=== PATIENT | female | born 1950 | race Caucasian/White ===

== ENCOUNTER → 2016-05-25 | Day surgery (SDC) | payer MEDICARE ==
[~2016-05-25] MED LIST: LACTATED RINGER'S 1000 ML INJ 1,000 ML ONE; MIDAZOLAM HCL 2 MG/2 ML VIAL ONE; MOXIFLOXACIN 0.5% OPHT SOLN 3 ML BTL ONE; ONDANSETRON HCL 4 MG/2 ML VIAL IV PUSH ONE; PHENYLEPHRINE HCL 10% OPTH SOLN 5 ML BTL ONE; PROPOFOL 200 MG/20 ML AMP IV ONE; TETRACAINE 0.5% OPTH SOLN 15 ML BTL ONE; TRIAMCINOLONE ACETONIDE 40 MG/ML VIAL ONE; prednisoLONE ACETATE 1% OPHT SUSP 5 ML BTL ONE
--- NOTE | 2016-05-28 09:49 | MP ---
cc: LACEY NICHOLS MD DATE OF SURGERY 05/26/2016 POSTOPERATIVE DIAGNOSIS Retained nuclear sclerotic cataract fragment left eye. PROCEDURE Pars plana vitrectomy, pars plana lensectomy, insertion of and intravitreal Kenalog left eye. COMPLICATIONS None BLOOD LOSS Less than [address] Cole INDICATIONS FOR THE PROCEDURE The patient is a delightful patient who had a very dense nuclear sclerotic cataract and a portion was dislocated into the posterior chamber. The patient presented today for surgical removal. PROCEDURE NOTE After informed form consent was obtained, the patient brought to the operating room and general anesthesia was established. The left eye was prepped and draped in a sterile fashion with Betadine in the conjunctival fornix. A three-port pars plans vitrectomy was established with a self-retaining infusion cannula. Core vitreous was evacuated and vitreous traction surrounding the nuclear sclerotic cataract fragment was relieved. Intravitreal PFO was instilled and the nuclear sclerotic cataract fragment was removed with a fragmatome. The PFO was then removed. Scleral depression examination was completed and no retinal holes, tears or detachments were seen. Trocars were removed and sclerotomies closed with a 7-0 Vicryl suture. The conjunctiva was reapproximated with 6-0 plain gut. The eye was patched with Tobramycin. A subconjunctival injection of Ancef and dexamethasone were given. The eye was patched with Tobramycin ointment. The patient was brought to the recovery room in stable condition and continued followup with [facility] for her postop postoperative care. MD PATSY Feliciano/NIK /5:06 PM /9:39 AM
== END | disposition home or self-care (01) ==
LOC: ESDC 10:05
PROVIDERS: ATTEND Ophthalmology
DX: H59.022 Cataract (lens) fragments in eye following cataract surgery, left eye (principal)
CPT/HCPCS: 00142; 00145; 66850; 67036; J2250; J2405; J3010; J3301; J7120